=== PATIENT | male | born 1975 | race Caucasian/White ===

== ENCOUNTER 2022-05-18 12:16 | Emergency (ER) | payer OTHER ==
[~2022-05-18] VITALS: Ht 167.6 cm; Wt 138.8 kg
[2022-05-18 12:24] VITALS: BP 139/77
[2022-05-18] MEDS ORDERED: BACI30OI9 TP (13:22)
[2022-05-18] MEDS ORDERED: IBUP-1953 PO (13:22)
[2022-05-18] MEDS ORDERED: BACI/NEOM/POLY B OINT PKT 1 UDPKT PACKET ONE (13:36)
--- NOTE | 2022-05-18 13:41 | NUR ---
wound care provided. Patient discharged to home in stable condition. Written and verbal after care instructions given. Patient verbalizes understanding of instruction.
== END 2022-05-18 13:43 | disposition home or self-care (01) ==
LOC: ER 12:18
DX: M79.671 Pain in right foot (principal); M79.672 Pain in left foot; Z79.899 Other long term (current) drug therapy